=== PATIENT | male | born 1995 | race Two or more races ===

== ENCOUNTER 2024-08-05 19:41 | Emergency (ER) | payer OTHER ==
[~2024-08-05] VITALS: Ht 170.2 cm; Wt 68.0 kg
[2024-08-05 19:47] VITALS: O2SAT 99
[2024-08-05] MEDS ORDERED: TOPUD MT (22:24)
[2024-08-05] MEDS ORDERED: D-ME473S50 PO (22:24)
[2024-08-05] MEDS: ONDANSETRON 4MG ODT PO ONE (22:38)
[2024-08-05 22:40] VITALS: BP 110/63; PULSE 75; RESP 18; TEMP 37.1; O2SAT 100
== END 2024-08-05 22:49 | disposition home or self-care (01) ==
LOC: ER 19:41
DX: B34.9 Viral infection, unspecified (principal); Z20.822 Contact with and (suspected) exposure to COVID-19; Z79.899 Other long term (current) drug therapy
CPT/HCPCS: 87804 ×2; 99283; 87426; Q0162; Z7610 ×2; A4606